=== PATIENT | female | born 2000 | race Caucasian/White ===

== ENCOUNTER 2020-08-15 17:23 | Emergency (ER) | payer OTHER, SELFPAY ==
[2020-08-15 17:37] VITALS: BP 125/84; PULSE 73; RESP 18; TEMP 36.8; O2SAT 100; BMI 20.7
--- NOTE | 2020-08-15 17:54 | ED_ITS ---
HPI - Animal Bite General: Chief Complaint: Animal Bite Stated Complaint: DOG BITE R CALF Time Seen by Provider: 08/15/20 17:34 History of Present Illness: HPI narrative: Patient is a 20-year-old female who comes to the ED with dog bite to right calf. Injury occurred today. Patient says she was out jogging for exercise and went by house that had a dog that was loose in the yard. The dog chased after her and bit her right calf puncture skin. Patient was able to talk to the dog general distillery worker and they were unsure of the dog's vaccination history. Patient came here to the ED to be evaluated and to start rabies administration. Patient says she needs an updated tetanus shot. Associated symptoms: Deny chills, fever(s) or headache(s) Review of Systems Const: Denies: fever(s), chills or fatigue Eyes: Denies: change in vision or eye discomfort ENMT: Denies: throat pain, odynophagia, nasal discharge or nasal congestion Card: Denies: chest pain, palpitations, edema, swelling of feet/ankles, dyspnea on exertion or orthopnea Resp: Denies: dyspnea, productive cough or non-productive cough GI: Denies: abdominal pain, nausea, vomiting, diarrhea, constipation or hematochezia : Denies: flank pain, dysuria or hematuria Musc: Denies: neck pain, back pain or extremity swelling Skin/Breast: Reports: new lesions (2 puncture wounds to right calf from dog bite.); Denies: rash Neuro: Denies: headache(s), numbness in extremities or weakness in extremities Physical Exam Const: COMMON NORMALS: no acute distress, patient oriented x3 and alert HENMT: COMMON NORMALS: normocephalic HEAD & SCALP: normocephalic MOUTH: Normal oral and palatal mucosa present THROAT: posterior oropharynx normal and uvula midline Neck/C-Spine: COMMON NORMALS: supple GENERAL: Yes normal visual inspection Resp: COMMON NORMALS: normal respiratory effort, No retractions, No use of accessory muscles and clear to auscultation bilaterally AUSCULTATION: clear to auscultation bilaterally Cardio: COMMON NORMALS: regular rate, regular rhythm, S1 normal heart sound present, S2 normal heart sound present, No gallops present (Cardio), No clicks present (Cardio), No murmurs present (Cardio) and Peripheral pulses 2+ throughout RATE: regular rate RHYTHM: regular rhythm HEART SOUNDS: S1 normal heart sound present and S2 normal heart sound present PERIPHERAL PULSES: Peripheral pulses 2+ throughout GI: COMMON NORMALS: Normal to inspection, nondistended, normoactive bowel sounds present, Soft to palpation, non-tender and no masses PALPATION: Yes Soft to palpation : COMMON NORMALS: Yes no CVA tenderness BLADDER/KIDNEY EXAM: Yes no CVA tenderness Back/Pelvis: COMMON NORMALS: no CVA tenderness Extremity: NARRATIVE EXTREMITY EXAM: Patient had 2 small puncture wounds to right calf. No active bleeding seen. No erythema or warmth present. No purulent drainage seen. GENERAL: Yes normal exam except as noted Neuro: COMMON NORMALS: patient oriented x3 and moves all extremities SENSORIUM/ORIENTATION: Yes alert Skin: NARRATIVE SKIN EXAM: Patient had 2 small puncture wounds to right calf. No active bleeding seen. No erythema or warmth present. No purulent drainage seen. Course Vital Signs: Vital signs: Vital Signs Temperature 98.3 F 08/15/20 17:37 Pulse Rate 76 08/15/20 19:57 Respiratory Rate 16 08/15/20 19:57 Blood Pressure 121/72 08/15/20 19:57 Pulse Oximetry 98 08/15/20 19:57 MDM - Animal Bite MDM Narrative: Medical decision making narrative: Patient is a healthy 20-year-old female comes to the ED after being bit by dog in her right calf. Dog vaccination history was unknown. Exam showed 2 small puncture wounds on right calf with no active bleeding or purulent drainage seen. No signs of developing cellulitis. Patient was given tetanus, rabies vaccine and rabies Ig. Puncture wounds were cleaned, irrigated and bandaged by nurse. Patient was discharged home with a prophylactic prescription of Augmentin. She was instructed on the day she is to return to get her additional series of rabies shots. Follow-up with PCP in 7 to 10 days. Return to ED precautions given. Patient understood and agreed with plan. Discharge Plan Discharge Patient Disposition: Home Clinical Impression: Rabies, need for prophylactic vaccination against Dog bite Qualifiers: Encounter type: initial encounter Qualified Code(s): W54.0XXA - Bitten by dog, initial encounter Condition: Stable Prescriptions: New amoxicillin-pot clavulanate 500-125 mg tablet 1 tab PO BID 7 Days Qty: 14 RF: 0 No Action imiquimod 5 % cream in packet See Rx Instructions .ROUTE .COMPLEX RF: 0 Tri-Sprintec (28) 0.18/0.215/0.25 mg-35 mcg (28) tablet 1 tab PO DAILY RF: 0 Epi E-Z Pen 0.3 mg/0.3 mL Auto-Injector See Rx Instructions .ROUTE .COMPLEX RF: 0 albuterol sulfate 90 mcg/actuation Hfa Aerosol Inhaler 2 puff INHALATION 6XD PRN (Reason: asthma symptoms) RF: 0 Discharge Orders: Discharge ED (Routine); Ordered 08/15/20 Ordered By: Jere Bonilla Discharge Diet: Regular Discharge Activity: Resume usual activity Patient Instructions: Rabies Vaccine (Injection), Rabies Immune Globulin (Injection), Animal Bite (ED) Activity Restrictions/Additional Instructions: Follow-up with medical provider as directed. return to the ED or Urgent care for rabies vaccination dose on day 3 (FridayAug 18), day 7 (FridayAug 22 and day 14(Aug 29). Take medications as prescribed. Return to the ER or your medical provider if condition worsens. Please read and understand discharge instructions. If any questions, please ask. Coding Level of Care Code ED Employee Benefits Director for Trisha Fwsarah Exam Comprehensive
[2020-08-15 18:15] VITALS: BP 121/72; PULSE 81; RESP 16; O2SAT 99
--- NOTE | 2020-08-15 18:16 | PC.NURSE ---
irrigated and cleaned to right lower leg, patient tolerated well
[2020-08-15] MEDS: amoxicillin-clav 500-125 mg Tablet 1 TAB PO (19:01)
[2020-08-15] MEDS: tetanus-dipt-pertussis 0.5 mL SDV IM (19:02)
[2020-08-15] MEDS: rabies vaccine 2.5 unit SDV IM (19:09)
[2020-08-15 19:57] VITALS: BP 121/72; PULSE 76; RESP 16; O2SAT 98
== END 2020-08-15 19:58 | disposition home or self-care (01) ==
PROVIDERS: Emergency Provider Physician Assistant
DX: S81.851A Open bite, right lower leg, initial encounter (principal); W54.0XXA Bitten by dog, initial encounter; Z29.14 Encounter for prophylactic rabies immune globulin; Z20.3 Contact with and (suspected) exposure to rabies; Z23 Encounter for immunization
CPT/HCPCS: 90375; 90471; 90675; 90715; 96372; 99283

== ENCOUNTER → 2022-03-28 08:30 | Outpatient (BNVA) | payer OTHER, SELFPAY | PROVIDERS: Visit Provider Nurse Practitioner Women's Health | DX: Z32.00 Encounter for pregnancy test, result unknown (principal) | CPT/HCPCS: 81025 ==

== ENCOUNTER → 2022-04-09 08:58 | Outpatient (BNVA) | payer OTHER, MEDICAID, SELFPAY | PROVIDERS: Visit Provider Nurse Practitioner Women's Health | DX: Z34.91 Encounter for supervision of normal pregnancy, unspecified, first trimester (principal); Z3A.09 9 weeks gestation of pregnancy | CPT/HCPCS: 76817 ==

== ENCOUNTER → 2022-04-17 09:20 | Outpatient (BNVA) | payer MEDICAID, SELFPAY | PROVIDERS: Visit Provider Obstetrics & Gynecology | DX: Z34.90 Encounter for supervision of normal pregnancy, unspecified, unspecified trimester (principal); Z3A.00 Weeks of gestation of pregnancy not specified | CPT/HCPCS: 80307; 81000; 84315; 85025; 86592; 86762; 86803; 86850; 86900; 87086; 87340; 87806 ==

== ENCOUNTER → 2022-04-26 08:30 | Outpatient (BNVA) | payer MEDICAID, SELFPAY | PROVIDERS: Visit Provider Obstetrics & Gynecology | DX: O09.899 Supervision of other high risk pregnancies, unspecified trimester (principal); Z3A.00 Weeks of gestation of pregnancy not specified | CPT/HCPCS: 81000; 84443; 87491; 87591; 87661; 88175 ==

== ENCOUNTER → 2022-05-06 09:55 | Outpatient (BNVA) | payer MEDICAID, SELFPAY | PROVIDERS: Visit Provider Obstetrics & Gynecology | DX: O09.899 Supervision of other high risk pregnancies, unspecified trimester (principal) | CPT/HCPCS: 84443 ==

== ENCOUNTER → 2022-05-29 13:00 | Outpatient (BNVA) | payer MEDICAID, SELFPAY | PROVIDERS: Visit Provider Obstetrics & Gynecology | DX: O09.899 Supervision of other high risk pregnancies, unspecified trimester (principal) | CPT/HCPCS: 81000 ==

== ENCOUNTER → 2022-06-21 11:12 | Outpatient (BNVA) | payer MEDICAID, SELFPAY | PROVIDERS: PCP Obstetrics & Gynecology; Visit Provider Emergency Medicine | DX: R11.0 Nausea (principal); K52.9 Noninfective gastroenteritis and colitis, unspecified | CPT/HCPCS: 87400; 87426 ==

== ENCOUNTER → 2022-06-26 10:15 | Outpatient (BNVA) | payer MEDICAID, SELFPAY | PROVIDERS: PCP Obstetrics & Gynecology; Visit Provider Obstetrics & Gynecology | DX: O09.899 Supervision of other high risk pregnancies, unspecified trimester (principal); Z3A.00 Weeks of gestation of pregnancy not specified | CPT/HCPCS: 81000 ==

== ENCOUNTER → 2022-07-25 10:40 | Outpatient (BNVA) | payer MEDICAID, SELFPAY | PROVIDERS: PCP Obstetrics & Gynecology; Visit Provider Nurse Practitioner Women's Health | DX: O09.899 Supervision of other high risk pregnancies, unspecified trimester (principal); F41.9 Anxiety disorder, unspecified; F32.A Depression, unspecified; J45.990 Exercise induced bronchospasm; L30.9 Dermatitis, unspecified; O21.9 Vomiting of pregnancy, unspecified; Z91.010 Allergy to peanuts; Z91.018 Allergy to other foods | CPT/HCPCS: 81000 ==

== ENCOUNTER → 2022-08-22 11:54 | Outpatient (BNVA) | payer MEDICAID, SELFPAY | PROVIDERS: PCP Obstetrics & Gynecology; Visit Provider Nurse Practitioner Women's Health | DX: O09.899 Supervision of other high risk pregnancies, unspecified trimester (principal); Z3A.00 Weeks of gestation of pregnancy not specified | CPT/HCPCS: 81000; 82950; 85025 ==

== ENCOUNTER → 2022-09-19 13:33 | Outpatient (BNVA) | payer MEDICAID, SELFPAY | PROVIDERS: PCP Obstetrics & Gynecology; Visit Provider Nurse Practitioner Women's Health | DX: O09.899 Supervision of other high risk pregnancies, unspecified trimester (principal); Z3A.00 Weeks of gestation of pregnancy not specified | CPT/HCPCS: 81000 ==

== ENCOUNTER → 2022-09-26 11:00 | Outpatient (BNVA) | payer MEDICAID, SELFPAY | PROVIDERS: PCP Obstetrics & Gynecology; Visit Provider Nurse Practitioner Women's Health | DX: O09.899 Supervision of other high risk pregnancies, unspecified trimester (principal); Z3A.00 Weeks of gestation of pregnancy not specified | CPT/HCPCS: 81000; 85025; 87086 ==

== ENCOUNTER → 2022-10-17 10:25 | Outpatient (BNVA) | payer MEDICAID, SELFPAY | PROVIDERS: PCP Obstetrics & Gynecology; Visit Provider Obstetrics & Gynecology | DX: F32.A Depression, unspecified (principal); F41.9 Anxiety disorder, unspecified; O09.899 Supervision of other high risk pregnancies, unspecified trimester; J45.990 Exercise induced bronchospasm; L30.9 Dermatitis, unspecified | CPT/HCPCS: 81000; 87081 ==

== ENCOUNTER 2022-10-25 01:26 | Inpatient (IN) | payer MEDICAID, SELFPAY ==
[2022-10-24] VITALS (13 sets, daily range): BP systolic 116–143; BP diastolic 69–91; PULSE 66–88; RESP 16–17; TEMP 35.9; BMI 27.5
--- NOTE | 2022-10-24 14:55 | PC.NURSE ---
INTO ROOM TO ADMIN CYTOTEC. PT ASKING IF SHE HAS TO BE INDUCED, SHE WOULD RATHER NOT. DR SILVESTRE CALLED, ORDERS TO HOLD ANY INTERVENTIONS AT THIS TIME AND SHE WILL COME OVER AND TALK TO PT/FAMILY AND DISCUSS TREATMENT PLAN AT LENGTH. PT OK WITH THIS.
[2022-10-24] MEDS: lactated ringers 1,000 ML 125 ML IV (16:35)
--- NOTE | 2022-10-24 16:57 | PM.OPHPUD ---
Labor & Delivery H&P Update Date of Procedure: October 24, 2022 Date H&P Performed: 10/17/22 Changes to previous documentation: The patient has been sent to labor and delivery for oligohydramnios (2.8) We have discussed what causes oligohydramnios. She would like to receive fluids and have a repeat MARÍA in the morning. Admission Diagnosis: IUP@[id number], oligohydramnios
[2022-10-24 17:00] LABS: Basophils % 0.3 %; Eosinophils # 0.2 10^3/uL (0.0-0.8); Eosinophils % 2.6 %; Hematocrit 36.6 % (37.0-47.0); Hemoglobin 12.2 g/dL (11.5-15.3); Lymphocytes # 1.6 10^3/uL (0.8-4.8); Lymphocytes % 17.6 %; Mean Corpuscular HGB Conc 33.3 g/dL (30.0-36.0); Mean Corpuscular Hemoglobin 30.1 pg (28.0-34.0); Mean Corpuscular Volume 90.4 fl (81-99); Mean Platelet Volume 10.5 fL (7.4-10.4); Monocytes # 0.8 10^3/uL (0.2-0.9); Monocytes % 8.9 %; Neutrophils # 6.43 10^3/uL (1.8-7.7); Neutrophils % 70.2 %; Nucleated Red Blood Cells % 0 %; Platelet Count 321 10^3/cmm (130-400); Red Blood Count 4.05 10^6/uL (4.1-5.3); Red Cell Distribution Width 12.9 % (12.1-15.1); White Blood Count 9.2 10^3/uL (4.0-10.0)
[2022-10-24] MEDS: miSOPROStol 100 mcg tablet 25 MCG VAGINAL (21:14)
[2022-10-25] VITALS (38 sets, daily range): BP systolic 93–165; BP diastolic 53–103; PULSE 64–110; RESP 15–25; TEMP 36–36.9; O2SAT 100
[2022-10-25] MEDS: miSOPROStol 100 mcg tablet 25 MCG VAGINAL (01:14)
[2022-10-25] MEDS: lidocaine 2% INJ 20 mL INJECTION (05:26)
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
--- NOTE | 2022-10-25 06:21 | PM.DELIVERY ---
Delivery Note: Date of delivery: October 25, 2022 Pre-delivery diagnoses: 38 weeks gestation oligohydramnios Post-delivery diagnoses: same Procedure: Labor induction Vaginal delivery Delivering Physician: Dmitriy Mejia MD Estimated blood loss (mL): 300 Findings: vigorous male infant normal placenta and cord cord gases and blood obtained no episiotomy third-degree perineal laceration repaired Delivery: vaginal delivery Post-Delivery Status: good History History History 1 Term 0 0 Miscarriages/Ectopic 0 Living Children 0 A&P Assessment and plan (1) 38 weeks gestation of : (2) Oligohydramnios: vaginal delivery repair of third-degree perineal laceration Coding Level of Care Code Acute Code for Chg Fwd Diagnoses 38 weeks gestation of Z3A.38 Oligohydramnios O41.00X0 Time Spent (min) 60
[2022-10-25] MEDS: ibuprofen 800 mg tablet PO ×3 (11:15→20:42)
[2022-10-25] MEDS: prenatal vitamin Capsule 1 CAP PO (11:16)
[2022-10-25 17:32] LABS: Hematocrit 32.2 % (37.0-47.0); Hemoglobin 10.9 g/dL (11.5-15.3); Mean Corpuscular HGB Conc 33.9 g/dL (30.0-36.0); Mean Corpuscular Hemoglobin 30.8 pg (28.0-34.0); Mean Platelet Volume 10.2 fL (7.4-10.4); Platelet Count 266 10^3/cmm (130-400); Red Blood Count 3.54 10^6/uL (4.1-5.3); Red Cell Distribution Width 13.1 % (12.1-15.1); White Blood Count 11.5 10^3/uL (4.0-10.0)
[2022-10-26 00:39] VITALS: BP 105/66; PULSE 83; TEMP 36.8
[2022-10-26 05:00] VITALS: BP 123/80; PULSE 82; TEMP 36.6; O2SAT 97
[2022-10-26] MEDS: prenatal vitamin Capsule 1 CAP PO (09:35)
[2022-10-26] MEDS: ibuprofen 800 mg tablet PO (09:35)
[2022-10-26 09:36] VITALS: BP 115/67; PULSE 99; RESP 15; TEMP 36.4
--- NOTE | 2022-10-26 13:20 | P.DS_ITS ---
Discharge Providers Date of Admission: 10/25/22 01:26 Date of Discharge: October 26, 2022 Attending Provider at Admission: Dmitriy Mejia MD Attending Provider at Discharge: Dmitriy Mejia MD Primary Care Provider: Patricia Dumont MD Diagnoses at Discharge Discharge Diagnosis (1) 38 weeks gestation of : Status: Acute (2) Oligohydramnios: Status: Acute Reason for Visit Reason for Visit: low soniya Hospital Course Hospital Course The patient was admitted for induction of labor for oligohydramnios. She received two doses of cytotec and had spontaneous delivery of a term male . She did well and was requesting discharge on day #1 Physical Exam Const: COMMON NORMALS: no acute distress, average body habitus, patient oriented x3, no limitations, healthy appearing, alert and well nourished GENERAL APPEARANCE: cooperative, comfortable, well kempt and well developed ORIENTATION/CONSCIOUSNESS: Yes awake, Yes oriented to person, Yes oriented to place and Yes oriented to time Resp: COMMON NORMALS: normal respiratory effort EFFORT & INSPECTION: Yes able to speak in complete sentences GI: COMMON NORMALS: Soft to palpation and non-tender PALPATION: Yes Soft to palpation Extremity: COMMON NORMALS: no calf tenderness Neuro: COMMON NORMALS: patient oriented x3 SENSORIUM/ORIENTATION: Yes alert, Yes oriented to person, Yes oriented to place and Yes oriented to time Psych: APPEARANCE: Yes well kempt Discharge Data Studies Completed and Pending Laboratory Results WBC 11.5 10^3/uL (4.0-10.0) H 10/25/22 17:28 RBC 3.54 10^6/uL (4.1-5.3) L 10/25/22 17:28 Hgb 10.9 g/dL (11.5-15.3) L 10/25/22 17:28 Hct 32.2 % (37.0-47.0) L 10/25/22 17:28 MCV 91.0 fl (81-99) 10/25/22 17:28 MCH 30.8 pg (28.0-34.0) 10/25/22 17:28 MCHC 33.9 g/dL (30.0-36.0) 10/25/22 17:28 RDW 13.1 % (12.1-15.1) 10/25/22 17:28 Plt Count 266 10^3/cmm (130-400) 10/25/22 17:28 MPV 10.2 fL (7.4-10.4) 10/25/22 17:28 Neut % (Auto) 70.2 % 10/24/22 16:30 Lymph % (Auto) 17.6 % 10/24/22 16:30 [place] % (Auto) 8.9 % 10/24/22 16:30 Eos % (Auto) 2.6 % 10/24/22 16:30 Baso % (Auto) 0.3 % 10/24/22 16:30 Neut # (Auto) 6.43 10^3/uL (1.8-7.7) 10/24/22 16:30 Lymph # (Auto) 1.6 10^3/uL (0.8-4.8) 10/24/22 16:30 [place] # (Auto) 0.8 10^3/uL (0.2-0.9) 10/24/22 16:30 Eos # (Auto) 0.2 10^3/uL (0.0-0.8) 10/24/22 16:30 Baso # (Auto) 0.0 10^3/uL (0.0-0.1) 10/24/22 16:30 Nucleated RBC % (auto) 0 % 10/24/22 16:30 Nucleated RBCs # 0.0 /100WBC 10/24/22 16:30 Vitals Last Vital Signs Temp 97.6 F 10/26/22 09:36 Pulse 99 10/26/22 09:36 Resp 15 10/26/22 09:36 BP 115/67 10/26/22 09:36 Pulse Ox 97 10/26/22 05:00 O2 Del Method Room Air 10/26/22 05:00 Discharge Plan Discharge Condition: Stable Prescriptions: Continued triamcinolone acetonide 0.1 % cream 1 applic topical DAILY Qty: 80 3RF mupirocin 2 % ointment 1 applic topical TID 10 Days Qty: 22 0RF prenat.vits,mirela,[id number] Tablet 1 tab PO DAILY [place] DHA 92 mg (43 mg-22 [id number]) tablet,chewable 92 mg PO DAILY calcium carbonate [Antacid (calcium carbonate)] 200 mg calcium (500 mg) tablet,chewable 200 mg PO DAILY Unisom (doxylamine) 25 mg tablet 25 mg PO Q6H pyridoxine (vitamin B6) 200 mg tablet 200 mg PO BID promethazine 25 mg tablet 25 mg PO Q6H PRN (Reason: nausea and vomiting) Qty: 30 0RF epinephrine 0.3 mg/0.3 mL auto-injector 0.3 ml .ROUTE .COMPLEX Qty: 2 0RF Rx Instructions: 0.3 mL; albuterol sulfate 90 mcg/actuation HFA aerosol inhaler 2 puff INHALATION 6XD PRN (Reason: asthma symptoms) Qty: 6.7 3RF Discharge Orders: Discharge Order (Routine); Ordered 10/26/22 Ordered By: Patricia Dumont Referrals: Patricia Dumont MD [Primary Care Provider] - (Your 2 week appointment will be on November 07 @ 1:30pm Your 6 week appointment will be on December 02 @ 11:00am) Patient Instructions: Opioid Safety Discharge Attestations Time Spent in Discharge Care*: less than 30 min Quality Metrics Clinical Quality Measures [ No reported AMI, CVA or VTE this stay] Coding Level of Care Code Acute Code for Chg Fwd Diagnoses 38 weeks gestation of Z3A.38 Oligohydramnios O41.00X0
[2022-10-26 15:19] VITALS: BP 126/67; PULSE 97; RESP 14; TEMP 36.9
== END 2022-10-26 15:19 | disposition home or self-care (01) | DRG 768 ==
LOC: OPOB 01:26 → OBGYN 01:26
PROVIDERS: Admitting Provider Obstetrics & Gynecology; PCP Obstetrics & Gynecology; Visit Provider Obstetrics & Gynecology
DX: O41.03X0 Oligohydramnios, third trimester, not applicable or unspecified (principal); Z37.0 Single live birth; O70.20 Third degree perineal laceration during delivery, unspecified; O99.344 Other mental disorders complicating childbirth; O9A.42 Sexual abuse complicating childbirth; Z3A.38 38 weeks gestation of pregnancy; O75.89 Other specified complications of labor and delivery; F41.9 Anxiety disorder, unspecified; F32.A Depression, unspecified; J45.990 Exercise induced bronchospasm; L30.9 Dermatitis, unspecified; Z91.410 Personal history of adult physical and sexual abuse; Z79.51 Long term (current) use of inhaled steroids
CPT/HCPCS: 36415; 59025; 59409; 81000; 85025; 85027; 87086; 98960; 99211; J7040; J7120